=== PATIENT | male | born 1980 | race African-American/Black ===

== ENCOUNTER 2018-03-04 18:34 | Emergency (ER) | payer MEDICAID ==
[~2018-03-04] VITALS: Ht 177.8 cm; Wt 131.5 kg
[2018-03-04 19:15] VITALS: Ht 177.8 cm; Wt 131.5 kg
[2018-03-04 22:09] VITALS: BP 157/95
== END 2018-03-04 22:09 | disposition home or self-care (01) ==
LOC: ED 18:34
DX: K08.89 Other specified disorders of teeth and supporting structures (principal); E11.9 Type 2 diabetes mellitus without complications; Z88.1 Allergy status to other antibiotic agents